=== PATIENT | male | born 2005 | race Caucasian/White ===

== ENCOUNTER 2024-05-29 10:43 | Inpatient (IN) | payer MEDICAID ==
[~2024-05-29] VITALS: Ht 175.3 cm; Wt 63.6 kg
[2024-05-29 12:48] LABS: BASOPHILS % (AUTO) 0.2 % (0-1); EOSINOPHILS % (AUTO) 0 % (0-6); HEMATOCRIT 46.3 % (42.0-52.0); HEMOGLOBIN 15.7 g/dl (14.0-17.9); LYMPHOCYTES # (AUTO) 1.2 X10'3 (1.1-4.8); LYMPHOCYTES % (AUTO) 7.6 % (21-51); MEAN CORPUSCULAR HEMOGLOBIN 27.5 PG (27.0-31.0); MEAN CORPUSCULAR HGB CONC 33.9 g/dL (33.0-36.5); MEAN CORPUSCULAR VOLUME 80.9 FL (78-98); MONOCYTES # (AUTO) 1.6 X10'3 (0-0.9); MONOCYTES % (AUTO) 9.9 % (2-12); NEUTROPHILS # (AUTO) 13.3 X10'3 (1.8-7.7); NEUTROPHILS % (AUTO) 82.3 % (42-75); PLATELET COUNT 482 X10'3 (140-440); RED BLOOD COUNT 5.72 X10'6 (4.70-6.10); WHITE BLOOD COUNT 16.2 X10'3 (4.5-11.0)
[2024-05-29 13:03] LABS: ALANINE AMINOTRANSFERASE 45 U/L (12-78); ALBUMIN 4.9 G/DL (3.4-5.0); ALBUMIN/GLOBULIN RATIO 1.2 (1.1-1.5); ALKALINE PHOSPHATASE 88 IU/L (20-180); AMYLASE 98 U/L (25-115); ANION GAP 10 (8-16); ASPARTATE AMINO TRANSFERASE 22 U/L (10-37); BILIRUBIN,TOTAL 1.6 MG/DL (0.1-1.0); BLOOD UREA NITROGEN 11 MG/DL (7-18); BUN/CREATININE RATIO 10.6 (10.0-20.0); CALCIUM 10.4 MG/DL (8.5-10.1); CHLORIDE 95 MMOL/L (99-107); CREATININE 1.04 MG/DL (0.60-1.10); GLUCOSE 105 MG/DL (70-104); LIPASE 19 U/L (16-77); POTASSIUM 3.9 MMOL/L (3.5-5.1); SODIUM 136 MMOL/L (135-145); TOTAL CARBON DIOXIDE 30.9 MMOL/L (24-32); TOTAL PROTEIN 8.9 G/DL (6.4-8.2); eCRCL 97 ML/MIN; eGFR > 90 ML/MIN
[2024-05-29] MEDS ORDERED: iohexol 300mg/ml 100ml inj. ONE (14:07)
[2024-05-29 15:23] LABS: BILIRUBIN,URINE SMALL (Neg); CLARITY,URINE CLEAR (Clear); COLOR,URINE YELLOW (Yellow); GLUCOSE, URINE NEGATIVE (Neg); KETONES,URINE 40 mg/dl (Neg); LEUKOCYTE ESTERASE ,URINE NEGATIVE (Neg); NITRITES, URINE NEGATIVE (Neg); OCCULT BLOOD,URINE NEGATIVE (Neg); PH,URINE 6.5 (4.8-8.0); PROTEIN,URINE TRACE mg/dl (Neg)
[2024-05-29] MEDS: piperacillin/tazo 3.375gm/50ml 50 ML IV SCH (15:46)
[2024-05-29 15:47] LABS: UA COLLECTION TYPE CLN CATCH MIDSTREAM
[2024-05-29] MEDS: normal saline 1000ml 1,000 ML IV ONE (15:47)
[2024-05-29 15:52] LABS: BACTERIA,URINE FEW /HPF (Neg); MUCUS STRANDS MODERATE /LPF (Neg); RBC,URINE 0-2 /HPF (0-2); SQUAMOUS EPITHELIAL CELL,UR FEW /LPF (FEW); WBC,URINE 0-4 /HPF (0-4)
[2024-05-29] MEDS: ondansetron/PF 4mg/2ml inj IV ONE (16:09)
[2024-05-29] MEDS: morphine 2 MG/ML inj. syringe IV ONE (16:10)
[2024-05-29] MEDS ORDERED: magnesium sulf-water 2g/50mL 50 ML IV PRN (17:15)
[2024-05-29] MEDS ORDERED: magnesium Cl slow-release 64mg tablet PO PRN (17:15)
[2024-05-29] MEDS ORDERED: potassium Cl 20 mEq SR tablet PO PRN ×2 (17:15)
[2024-05-29] MEDS ORDERED: acetaminophen 325mg tablet PO PRN (17:15)
[2024-05-29] MEDS ORDERED: potassium Cl 40MEQ/1/2NS 520ml 520 ML IV PRN (17:15)
[2024-05-29] MEDS ORDERED: ondansetron/PF 4mg/2ml inj IV PRN (17:15)
[2024-05-29] MEDS ORDERED: magnesium sulf-water 4G/100mL 100 ML IV PRN (17:15)
[2024-05-29] MEDS: normal saline 1000ml 1,000 ML IV SCH (17:32)
[2024-05-29] MEDS: morphine 2 MG/ML inj. syringe IV PRN (18:32)
[2024-05-29] MEDS: K and/or MAG REPLACEMENT MC SCH (19:00)
[2024-05-29 19:45] VITALS: BP 119/61; PULSE 49; RESP 15; TEMP 98.5; O2SAT 99
[2024-05-29 22:00] VITALS: BP 122/60; PULSE 50; RESP 14; RESP 18; TEMP 98.4; O2SAT 99
[2024-05-30 04:27] LABS: BASOPHILS % (AUTO) 0.3 % (0-1); EOSINOPHILS % (AUTO) 0.1 % (0-6); HEMATOCRIT 41.2 % (42.0-52.0); HEMOGLOBIN 13.6 g/dl (14.0-17.9); LYMPHOCYTES # (AUTO) 0.9 X10'3 (1.1-4.8); LYMPHOCYTES % (AUTO) 7.9 % (21-51); MEAN CORPUSCULAR HGB CONC 33.1 g/dL (33.0-36.5); MEAN CORPUSCULAR VOLUME 81.5 FL (78-98); MEAN PLATELET VOLUME 8.5 FL (7.4-10.4); MONOCYTES # (AUTO) 2.2 X10'3 (0-0.9); MONOCYTES % (AUTO) 19.8 % (2-12); NEUTROPHILS # (AUTO) 7.9 X10'3 (1.8-7.7); NEUTROPHILS % (AUTO) 71.9 % (42-75); PLATELET COUNT 446 X10'3 (140-440); RED BLOOD COUNT 5.05 X10'6 (4.70-6.10); RED CELL DISTRIBUTION WIDTH 17.1 % (11.5-14.5)
[2024-05-30 04:41] LABS: ALBUMIN 3.6 G/DL (3.4-5.0); ANION GAP 9 (8-16); BLOOD UREA NITROGEN 11 MG/DL (7-18); BUN/CREATININE RATIO 12.1 (10.0-20.0); CALCIUM 8.8 MG/DL (8.5-10.1); CHLORIDE 102 MMOL/L (99-107); CREATININE 0.91 MG/DL (0.60-1.10); GLUCOSE 96 MG/DL (70-104); MAGNESIUM 2.1 MG/DL (1.5-2.4); POTASSIUM 3.8 MMOL/L (3.5-5.1); SODIUM 138 MMOL/L (135-145); TOTAL CARBON DIOXIDE 27.1 MMOL/L (24-32); eCRCL 118 ML/MIN; eGFR > 90 ML/MIN
[2024-05-30 04:57] LABS: TOTAL CELLS COUNTED 100
[2024-05-30 06:00] VITALS: BP 115/61; PULSE 56; RESP 18; TEMP 98.6; O2SAT 99
[2024-05-30 08:45] VITALS: RESP 16; O2SAT 98
[2024-05-30 10:00] VITALS: BP 111/68; PULSE 64; RESP 17; TEMP 98; O2SAT 99
[2024-05-30 18:00] VITALS: BP 113/60; PULSE 63; RESP 17; TEMP 97.6; O2SAT 97
[2024-05-30 20:00] VITALS: RESP 15; O2SAT 97
[2024-05-30] MEDS: diatr meglu/diatrizoate 30ml oral sol.-(3 dose) bottle PO SCH (21:28)
[2024-05-30 22:00] VITALS: BP 123/70; PULSE 57; RESP 14; TEMP 98.7; O2SAT 98
[2024-05-31 05:11] LABS: HEMOGLOBIN 13.5 g/dl (14.0-17.9); LYMPHOCYTES # (AUTO) 1.4 X10'3 (1.1-4.8); PLATELET COUNT 408 X10'3 (140-440); WHITE BLOOD COUNT 8.7 X10'3 (4.5-11.0)
[2024-05-31 05:13] LABS: BASOPHILS % (AUTO) 0.2 % (0-1); EOSINOPHILS % (AUTO) 0.5 % (0-6); HEMATOCRIT 40.3 % (42.0-52.0); LYMPHOCYTES % (AUTO) 15.8 % (21-51); MEAN CORPUSCULAR HEMOGLOBIN 27.6 PG (27.0-31.0); MEAN CORPUSCULAR HGB CONC 33.4 g/dL (33.0-36.5); MEAN CORPUSCULAR VOLUME 82.7 FL (78-98); MONOCYTES # (AUTO) 2.3 X10'3 (0-0.9); MONOCYTES % (AUTO) 26.7 % (2-12); NEUTROPHILS # (AUTO) 4.9 X10'3 (1.8-7.7); NEUTROPHILS % (AUTO) 56.8 % (42-75); RED BLOOD COUNT 4.88 X10'6 (4.70-6.10); RED CELL DISTRIBUTION WIDTH 17.1 % (11.5-14.5)
[2024-05-31 05:21] LABS: ALBUMIN 3.4 G/DL (3.4-5.0); ANION GAP 9 (8-16); CALCIUM 8.9 MG/DL (8.5-10.1); CHLORIDE 102 MMOL/L (99-107); CREATININE 0.82 MG/DL (0.60-1.10); GLUCOSE 96 MG/DL (70-104); MAGNESIUM 2.7 MG/DL (1.5-2.4); POTASSIUM 3.7 MMOL/L (3.5-5.1); SODIUM 137 MMOL/L (135-145); TOTAL CARBON DIOXIDE 25.7 MMOL/L (24-32); eCRCL 130 ML/MIN; eGFR > 90 ML/MIN
[2024-05-31 05:25] LABS: BLOOD UREA NITROGEN 8 MG/DL (7-18); BUN/CREATININE RATIO 9.8 (10.0-20.0)
[2024-05-31 05:32] LABS: LYMPHOCYTES % (MANUAL) 18 % (21-51); MONOCYTES % (MANUAL) 22 % (2-12); NEUTROPHILS % (MANUAL) 60 % (42-75)
[2024-05-31 06:00] VITALS: BP 120/70; PULSE 63; RESP 14; TEMP 98; O2SAT 100
[2024-05-31 09:50] VITALS: BP 114/64; PULSE 60; RESP 16; TEMP 98.8; O2SAT 98
[2024-05-31] MEDS ORDERED: NO HOME MEDS (12:52)
[2024-05-31 18:00] VITALS: BP 123/74; PULSE 63; RESP 16; TEMP 99.7; O2SAT 100
[2024-05-31 20:00] VITALS: RESP 16; O2SAT 100
[2024-05-31 22:00] VITALS: BP 131/75; PULSE 91; RESP 16; TEMP 98.1; O2SAT 99
[2024-06-01 05:58] LABS: BASOPHILS % (AUTO) 0 % (0-1); EOSINOPHILS % (AUTO) 0.3 % (0-6); HEMATOCRIT 40.7 % (42.0-52.0); HEMOGLOBIN 13.4 g/dl (14.0-17.9); LYMPHOCYTES # (AUTO) 1.6 X10'3 (1.1-4.8); MEAN CORPUSCULAR HEMOGLOBIN 27.1 PG (27.0-31.0); MEAN CORPUSCULAR HGB CONC 32.9 g/dL (33.0-36.5); MEAN CORPUSCULAR VOLUME 82.3 FL (78-98); MEAN PLATELET VOLUME 8.9 FL (7.4-10.4); MONOCYTES # (AUTO) 2.8 X10'3 (0-0.9); MONOCYTES % (AUTO) 19.6 % (2-12); NEUTROPHILS # (AUTO) 9.9 X10'3 (1.8-7.7); NEUTROPHILS % (AUTO) 69.1 % (42-75); PLATELET COUNT 390 X10'3 (140-440); RED BLOOD COUNT 4.94 X10'6 (4.70-6.10); RED CELL DISTRIBUTION WIDTH 17.5 % (11.5-14.5); WHITE BLOOD COUNT 14.3 X10'3 (4.5-11.0)
[2024-06-01 06:05] LABS: ALBUMIN 3.5 G/DL (3.4-5.0); ANION GAP 7 (8-16); BLOOD UREA NITROGEN 6 MG/DL (7-18); BUN/CREATININE RATIO 6.5 (10.0-20.0); CALCIUM 8.9 MG/DL (8.5-10.1); CHLORIDE 104 MMOL/L (99-107); CREATININE 0.92 MG/DL (0.60-1.10); GLUCOSE 92 MG/DL (70-104); MAGNESIUM 2.3 MG/DL (1.5-2.4); POTASSIUM 3.9 MMOL/L (3.5-5.1); SODIUM 139 MMOL/L (135-145); TOTAL CARBON DIOXIDE 28.2 MMOL/L (24-32); eCRCL 116 ML/MIN; eGFR > 90 ML/MIN
[2024-06-01 06:37] LABS: ANISOCYTOSIS 1+; PLATELET ESTIMATE NORMAL; TOTAL CELLS COUNTED 100
[2024-06-01 06:38] LABS: MICROCYTOSIS 1+; POIKILOCYTOSIS 1+
[2024-06-01 06:49] VITALS: BP 100/61; PULSE 54; RESP 12; TEMP 97.9; O2SAT 99
[2024-06-01 08:00] VITALS: RESP 16
[2024-06-01 11:00] VITALS: BP 156/83; PULSE 61; RESP 16; TEMP 97.5; O2SAT 97
== END 2024-06-01 16:42 | disposition home or self-care (01) | DRG 247 ==
LOC: ER 10:44 → ED HOLD 17:14 → SUR 3N 19:25
PROVIDERS: ADMIT Internal Medicine; ATTEND Internal Medicine
DX: K56.600 Partial intestinal obstruction, unspecified as to cause (principal); E46 Unspecified protein-calorie malnutrition; D72.829 Elevated white blood cell count, unspecified; Z90.81 Acquired absence of spleen; Z68.20 Body mass index [BMI] 20.0-20.9, adult
CPT/HCPCS: 36415; 74018; 74176; 74177; 80048; 80053; 81001; 82150; 83690; 83735; 85007; 85025; 87081; 99285; G0378; J2270; J2405; J2543; J7030; Q9963; Q9967